=== PATIENT | female | born 1975 | race Two or more races ===

== ENCOUNTER 2023-03-04 16:01 | Emergency (ER) | payer MEDICAID, OTHER ==
[~2023-03-04] VITALS: Ht 165.1 cm; Wt 79.1 kg
[2023-03-04 16:20] VITALS: BP 121/85
[2023-03-04] MEDS ORDERED: BACDST PO (16:56)
== END 2023-03-04 16:51 | disposition left against medical advice (07) ==
LOC: ER 16:01
DX: K91.89 Other postprocedural complications and disorders of digestive system (principal)